=== PATIENT | female | born 1945 | race Caucasian/White ===

== ENCOUNTER 2021-07-24 14:37 | Emergency (ER) | payer OTHER ==
[~2021-07-24] VITALS: Ht 154.9 cm; Wt 81.6 kg
[2021-07-24 14:40] VITALS: BP 154/78
--- NOTE | 2021-07-24 14:45 | NUR ---
PT W/C ASSISTED TO LOBBY
[2021-07-24] MEDS ORDERED: HYDROcodone/APAP 5/325 MG 1 TAB TAB PO ONE (15:35)
[2021-07-24] MEDS ORDERED: HYDROcodone/APAP 5/325 MG 1 TAB TAB ONE (17:41)
--- NOTE | 2021-07-24 17:46 | NUR ---
76 Y/O FEMALE BIBA FROM HOME C/O L HIP PAIN S/P FALL X4 DAYS AGO. DENIES HITTING HEAD/LOC. PT WENT TO [facility] X[facility] DA[facility], XR SHOWED NO FX IN L WRIST. L WRIST IN SPLINT. PT IS AA&OX4, UNABLE TO AMBULATE AT THIS TIME. MOVES UPPER EXTREMITIES WITH LIMITED MOBILITY. PT C/O 10/10 PAIN AT THIS TIME. HEART RATE EVEN AND REGULAR, LUNG SOUNDS CLEAR BL, RESPIRATIONS UNLABORED. PERRLA 3MM, DENIES BLURRY VISION OR DOUBLE VISION. DENIES N/V/D. PMH:DM2, PARKINSONS , HTN ALLERGIES:PCN
[2021-07-24] MEDS ORDERED: TRAM50TA1 PO (17:56)
[2021-07-24 18:26] VITALS: BP 156/65
--- NOTE | 2021-07-24 18:26 | NUR ---
Patient discharged with v/s stable. Written and verbal after care instructions given and explained. Patient alert, oriented and verbalized understanding of instructions. Wheel Chair Assisted with to car. All questions addressed prior to discharge. ID band removed. Patient advised to follow up with PMD. Rx of TRAMADOL given. Patient educated on indication of medication including possible reaction and side effects. Opportunity to ask questions provided and answered.
== END 2021-07-24 18:27 | disposition home or self-care (01) ==
LOC: MED 14:37
DX: M54.59 Other low back pain (principal); M25.552 Pain in left hip; E11.9 Type 2 diabetes mellitus without complications; I10 Essential (primary) hypertension; Z88.0 Allergy status to penicillin; W19.XXXA Unspecified fall, initial encounter; Y93.89 Activity, other specified; Y92.89 Other specified places as the place of occurrence of the external cause; Y99.8 Other external cause status
CPT/HCPCS: 72131; 73700; 99285